=== PATIENT | female | born 1985 | race Caucasian/White ===

== ENCOUNTER 2024-08-23 08:34 | Outpatient (CLI) | payer OTHER, SELFPAY ==
--- NOTE | 2024-08-23 08:45 | CRLHL7_ITS ---
For Patients: As a result of the Cures Act, medical imaging exams and procedure reports are released immediately into your electronic medical record. You may view this report before your referring provider. If you have questions, please contact your health care provider. DIGITAL DIAGNOSTIC BILATERAL MAMMOGRAM USING TOMOSYNTHESIS AND COMPUTER-AIDED DETECTION RIGHT BREAST ULTRASOUND CLINICAL HISTORY: RIGHT breast pain. COMPARISON: None. TECHNIQUE: Digital BILATERAL mammogram in four projections with computer-aided detection. Tomosynthesis was used in this interpretation. Real-time ultrasound imaging of RIGHT breast with imaging documentation. BREAST COMPOSITION: There are scattered areas of fibroglandular density. FINDINGS: 3D CC/MLO BILATERAL mammogram images submitted. No suspicious mass. No architectural distortion. No suspicious calcifications. No adenopathy. Targeted RIGHT breast ultrasound performed 8-10 o`clock 12 cm from the nipple. No fibrocystic change. No solid mass. IMPRESSION: No evidence of malignancy. RECOMMENDATIONS: Clinical follow-up. Age-appropriate screening mammography. A lay language report of this examination will be provided to the patient. BI-RADS Category 1: Negative Dictated by Crow Mckeon MD @ 08/23/2024 1:12:22 PM j/Dictated by: Crow Mckeon MD @ 08/23/2024 1:12:00 PM (Electronically Signed)
--- NOTE | 2024-08-23 09:15 | CRLHL7_ITS ---
For Patients: As a result of the Cures Act, medical imaging exams and procedure reports are released immediately into your electronic medical record. You may view this report before your referring provider. If you have questions, please contact your health care provider. PLEASE SEE DIGITAL DIAGNOSTIC BILATERAL MAMMOGRAM PERFORMED SAME DAY CRL:[email or web address] [email or web address]/Dictated by: Crow Mckeon MD @ 08/23/2024 1:12:00 PM (Electronically Signed)
== END 2024-08-23 08:35 | disposition home or self-care (01) ==
LOC: MAMMO 08:35
PROVIDERS: Visit Provider Obstetrics & Gynecology
DX: N64.4 Mastodynia (principal)
CPT/HCPCS: 76642; 77066; G0279

== ENCOUNTER 2024-11-19 08:52 | Outpatient (CLI) | payer OTHER, SELFPAY | END 2024-11-19 08:53 | disposition home or self-care (01) | LOC: NFLDREF 11-22 03:47 | PROVIDERS: PCP Physician Assistant Medical; Referring Provider Physician Assistant Medical; Visit Provider Physician Assistant Medical | DX: R53.83 Other fatigue (principal); E66.9 Obesity, unspecified | CPT/HCPCS: 80053; 82306; 82533; 82607; 82670; 82728; 83001; 83002; 84403; 84443; 86376; 87086 ==